=== PATIENT | male | born 1955 | race Caucasian/White ===

== ENCOUNTER → 2017-09-29 | Emergency (ER) | payer BC, OTHER ==
[~2017-09-29] MED LIST: ACETAMINOPHEN INJECTION 100 ML IVPB ONE; SODIUM CHLORIDE 1,000 ML IV STA
[2017-09-29 10:51] VITALS: BMI 39.9
--- NOTE | 2017-09-29 11:30 | PDOC ---
History of Present Illness - General Chief Complaint: Lightheaded Stated Complaint: DIZZINESS (PCP SENT) Time Seen by Provider: 09/29/17 10:58 - History of Present Illness Initial Comments: 09/29/17 11:30 "The patient is a 62 year old male, with a significant past medical history of hypertension and hyperlipidemia, who presents to the emergency department sent by PCP Dr. Azar for abnormal brain MRI earlier today. The patient reports presenting to his PCP for evaluation of 3 weeks of a headache and intermittent dizziness. His PCP ordered an outpatient brain MRI today which was notable for SDH. Pt denies any h/o trauma or falls. Patient denies any associated changes in vision or speech, nausea, vomiting, bladder or bowel incontinence, weakness, changes in gait, or lightheadedness. Patient reports he has been taking Aspirin daily for the headache. Last dose was yesterday. He denies any chest pain, shortness of breath, diaphoresis, or palpitations. He denies any recent travel or sick contacts. Allergies: NKDA Past Surgical History: None reported. Social History: Non smoker. No ETOH or recreational drug use PCP: Dr. Azar " Past History - Past Medical History Allergies/Adverse Reactions: Allergies Allergy/AdvReac Type Severity Reaction Status Date / Time Penicillins Allergy Intermediate Verified 09/29/17 10:48 Home Medications: Ambulatory Orders Lisinopril/Hydrochlorothiazide [Lisinopril-Hctz 20-25 mg Tab] 1 each PO DAILY Anemia: No Asthma: No Cancer: No Cardiac Disorders: No CVA: No COPD: No CHF: No Dementia: No Diabetes: No GI Disorders: No Disorders: No HTN: Yes Hypercholesterolemia: No Liver Disease: No Seizures: No Thyroid Disease: No - Immunization History Immunization Up to Date: Yes - Suicide/Smoking/Psychosocial Hx Smoking History: Never smoked Have you smoked in the past 12 months: No Information on smoking cessation initiated: No Hx Alcohol Use: No Drug/Substance Use Hx: No Substance Use Type: None Review of Systems - Review of Systems Comments:: 09/29/17 11:36 "GENERAL/CONSTITUTIONAL: No fever or chills. No weakness. HEAD, EYES, EARS, NOSE AND THROAT: No change in vision. No ear pain or discharge. No sore throat. CARDIOVASCULAR: No chest pain or shortness of breath. RESPIRATORY: No cough, wheezing, or hemoptysis. GASTROINTESTINAL: No nausea, vomiting, diarrhea or constipation. GENITOURINARY: No dysuria, frequency, or change in urination. MUSCULOSKELETAL: No joint or muscle swelling or pain. No neck or back pain. SKIN: No rash NEUROLOGIC: +Headache, dizziness. No loss of consciousness, or change in strength/sensation. ENDOCRINE: No increased thirst. No abnormal weight change. HEMATOLOGIC/LYMPHATIC: No anemia, easy bleeding, or history of blood clots. ALLERGIC/IMMUNOLOGIC: No hives or skin allergy. " *Physical Exam - Vital Signs Last Vital Signs Temp Pulse Resp BP Pulse Ox 98.2 F 111 H 18 139/77 96 09/29/17 10:48 09/29/17 10:48 09/29/17 10:48 09/29/17 10:48 09/29/17 10:48 - Physical Exam Comments: 09/29/17 11:36 "GENERAL: Awake, alert, and fully oriented, in no acute distress. HEAD: No signs of trauma EYES: PERRLA, EOMI, sclera anicteric, conjunctiva clear ENT: Auricles normal inspection, hearing grossly normal, nares patent, oropharynx clear without exudates. Moist mucosa NECK: Nontender, no stepoffs, Normal ROM, supple, no lymphadenopathy, JVD, or masses LUNGS: Breath sounds equal, clear to auscultation bilaterally. No wheezes, and no crackles HEART: Regular rate and rhythm, normal S1 and S2, no murmurs, rubs or gallops ABDOMEN: Soft, nontender, normoactive bowel sounds. No guarding, no rebound. No masses EXTREMITIES: Normal range of motion, no edema. No clubbing or cyanosis. No cords, erythema, or tenderness NEUROLOGICAL: Cranial nerves II through XII intact. 5/5 strength and sensation in all extremities, Normal speech, normal gait, normal cerebellar function SKIN: Warm, Dry, normal turgor, no rashes or lesions noted. " ED Treatment Course - LABORATORY CBC & Chemistry Diagram: 09/29/17 11:15 09/29/17 11:15 - RADIOLOGY Radiology Studies Ordered: Category Date Time Status HEAD CT WITHOUT CONTRAST [CT] Stat CT Scan 09/29/17 11:19 Ordered Medical Decision Making - Critical Care Time Total Critical Care Time (minutes): 60 Critical Care Statement: The care of this patient involved high complexity decision making to prevent further life threatening deterioration of the patient 's condition and/or to evaluate & treat vital organ system(s) failure or risk of failure. - Medical Decision Making 09/29/17 11:23 62 M with headache x 3 weeks, found to have SDH on outpt MRI. Pt awake and alert , with no neuro deficits. - Labs, coags - CT head - Nsgy consult Dr. Palacios 09/29/17 12:51 CT head confirms SDH Dr. Palacios unavailable. Dr. Cleveland consulted, awaiting callback 09/29/17 13:[address] Cleveland, who recommends transfer. [facility] called for "code neuro" 09/29/17 14:02 Pt accepted for txfer by Dr. Retana *DC/Admit/Observation/Transfer Diagnosis at time of Disposition: SDH (subdural hematoma) - Discharge Dispostion Disposition: TRANSFER ACUTE CARE/OTHER HOSP - Referrals - Patient Instructions - Post Discharge Activity - Transfer to Acute Care Facility Receiving Facility: [facility] Attestations Physician Attestion: 09/29/17 14:43 I, Dr. Orlin Weir MD, attest that this document has been prepared under my direction and personally reviewed by me in its entirety. I further attest, that it accurately reflects all work, treatment, procedures and medical decision -making performed by me.
[2017-09-29 11:36] LABS: BASO % 0.5 % (0-2.0); EOS % 1.5 % (0-4.5); HEMATOCRIT 41.6 % (35.4-49); HEMOGLOBIN 13.8 GM/dL (11.7-16.9); LYMPH % 10.2 % (8-40); MCH 31.4 pg (25.7-33.7); MCHC 33.2 g/dl (32.0-35.9); MEAN CELL VOLUME 94.8 fl (80-96); MEAN PLT VOLUME 8.8 fl (7.5-11.1); MONO % 6.9 % (3.8-10.2); NEUT % 80.9 % (42.8-82.8); PLATELET COUNT 282 K/MM3 (134-434); RBC 4.39 M/mm3 (4.00-5.60); RDW 12.9 % (11.9-15.9); WHITE BLOOD COUNT 11.7 K/mm3 (4.0-10.0)
[2017-09-29 11:53] LABS: INR 0.95 (0.82-1.09); PROTHROMBIN TIME (PATIENT) 10.7 SEC (9.7-13.0)
[2017-09-29 11:55] LABS: ACTIVATED PTT 26.1 SECONDS (25.2-36.5)
[2017-09-29 12:02] LABS: CHLORIDE 106 mmol/L (98-107); SODIUM 140 mmol/L (136-145)
[2017-09-29 12:07] LABS: ALBUMIN 3.6 g/dl (3.4-5.0); ANION GAP 6 (8-16); BLOOD UREA NITROGEN 21 mg/dL (7-18); CALCIUM 8.8 mg/dL (8.5-10.1); CO2 28 mmol/L (21-32); GLUCOSE,RANDOM 99 mg/dL (74-106)
[2017-09-29 12:11] LABS: CREATININE 1.2 mg/dL (0.7-1.3); SGOT/AST 15 U/L (15-37); SGPT/ALT 26 U/L (12-78)
[2017-09-29 12:13] LABS: ALK PHOS 71 U/L (45-117); BILIRUBIN,TOTAL 0.4 mg/dL (0.2-1.0); TOT PROT 7.5 g/dl (6.4-8.2)
[2017-09-29] MEDS: ACETAMINOPHEN 1000 MG/100 ML VIAL (NON FORMULARY) IVPB ONE ×2 (13:04→13:05)
[2017-09-29 14:20] VITALS: BP 136/77; PULSE 108; TEMP 99
--- NOTE | 2017-09-30 16:19 | EKG ---
Test Reason : Blood Pressure : / mmHG Vent. Rate : 104 BPM Atrial Rate : 104 BPM P-R Int : 140 ms QRS Dur : 090 ms QT Int : 338 ms P-R-T Axes : 044 -11 026 degrees QTc Int : 444 ms POOR DATA QUALITY, INTERPRETATION MAY BE ADVERSELY AFFECTED SINUS TACHYCARDIA WITH OCCASIONAL PREMATURE VENTRICULAR COMPLEXES OTHERWISE NORMAL ECG NO PREVIOUS ECGS AVAILABLE Confirmed by AKUA LOWERY MD ([id number]) on 09/30/2017 4:19:25 PM Referred By: Confirmed By:AKUA LOWERY MD
== END | disposition short-term general hospital (02) ==
LOC: JER 10:43
DX: I62.00 Nontraumatic subdural hemorrhage, unspecified (principal); I10 Essential (primary) hypertension; E78.5 Hyperlipidemia, unspecified; Z88.0 Allergy status to penicillin
CPT/HCPCS: 36415; 70450-TC; 80053; 85025; 85610; 85730; 86850; 86900; 86901; 93005; 93010; 99283-25; J0131

== ENCOUNTER 2023-01-17 17:14 | Inpatient (IN) | payer OTHER ==
[2023-01-17 19:02] LABS: BASO % 0.2 % (0-2.0); EOS % 1.7 % (0-4.5); HEMATOCRIT 39.6 % (35.4-49); HEMOGLOBIN 13.2 GM/dL (11.7-16.9); LYMPH % 9.3 % (8-40); MCH 30.9 pg (25.7-33.7); MCHC 33.4 g/dl (32.0-35.9); MEAN CELL VOLUME 92.6 fl (80-96); MEAN PLT VOLUME 8.8 fl (7.5-11.1); MONO % 8.4 % (3.8-10.2); NEUT % 80.4 % (42.8-82.8); PLATELET COUNT 250 10^3/uL (134-434); RBC 4.27 M/mm3 (4.00-5.60); RDW 13.1 % (11.9-15.9)
[2023-01-17 19:22] LABS: INR 1.06 (0.83-1.09); PROTHROMBIN TIME (PATIENT) 12.3 SEC (9.7-13.0)
[2023-01-17 19:26] LABS: CHLORIDE 103 mmol/L (98-107); POTASSIUM 3.9 mmol/L (3.5-5.1); SODIUM 139 mmol/L (136-145)
[2023-01-17 19:28] LABS: ALBUMIN 3.2 g/dl (3.4-5.0); ANION GAP 8 MMOL/L (8-16); BLOOD UREA NITROGEN 12.7 mg/dL (7-18); CALCIUM 8.4 mg/dL (8.5-10.1); CO2 29 mmol/L (21-32); GLUCOSE,RANDOM 114 mg/dL (74-106)
[2023-01-17 19:31] LABS: CREATININE 0.9 mg/dL (0.55-1.3); SGOT/AST 14 U/L (15-37); SGPT/ALT 19 U/L (13-61)
[2023-01-17 19:33] LABS: BILIRUBIN,TOTAL 0.9 mg/dL (0.2-1); TOT PROT 7.2 g/dl (6.4-8.2)
[2023-01-17 19:34] LABS: ALK PHOS 82 U/L (45-117)
[2023-01-17 20:30] LABS: LDH 191 U/L (87-246)
[2023-01-17] MEDS ORDERED: VANCOMYCIN 1,000 MG in DEXTROSE 5%-WATER - 250 ML IVPB ONE (20:44)
[2023-01-17] MEDS ORDERED: CEFEPIME HCL 1 GM VIAL (RESTRICTED TO ID) IVPB ONE (20:44)
[2023-01-17 20:56] VITALS: RESP 18
[2023-01-17] MEDS ORDERED: CEFEPIME 1 GM/100 ML BAG IVPB ONE (20:59)
[2023-01-17] MEDS ORDERED: VANCOMYCIN 1 GRAM (PRE-DOCKED) 1,000 MG/250 ML BAG IVPB ONE (22:06)
[2023-01-17] MEDS ORDERED: DOCUSATE SODIUM 100 MG CAPSULE (FP) PO PRN (23:11)
[2023-01-17] MEDS ORDERED: ACETAMINOPHEN 1000 MG/100 ML BAG IVPB PRN (23:14)
[2023-01-18 02:01] VITALS: BMI 45.2
[2023-01-18] MEDS ORDERED: CEFEPIME HCL 2 GM VIAL (RESTRICTED TO ID) ONE (09:12)
[2023-01-18] MEDS: NYSTATIN POWDER 100,000 UNITS/GM - 15 GM TOPICAL POWDER TP SCH ×2 (09:23→21:11)
[2023-01-18] MEDS: LISINOPRIL 20 MG TABLET PO SCH (09:23)
[2023-01-18 09:35] LABS: BASO % 0.3 % (0-2.0); HEMATOCRIT 35.1 % (35.4-49); HEMOGLOBIN 12.2 GM/dL (11.7-16.9); MCH 32.1 pg (25.7-33.7); MCHC 34.8 g/dl (32.0-35.9); MEAN CELL VOLUME 92.5 fl (80-96); MEAN PLT VOLUME 8.6 fl (7.5-11.1); MONO % 7.6 % (3.8-10.2); NEUT % 83.1 % (42.8-82.8); PLATELET COUNT 243 10^3/uL (134-434); RDW 12.9 % (11.9-15.9); WHITE BLOOD COUNT 12.3 K/mm3 (4.0-10.0)
[2023-01-18 09:59] LABS: POTASSIUM 3.8 mmol/L (3.5-5.1)
[2023-01-18] MEDS ORDERED: VANCOMYCIN 2,000 MG in DEXTROSE 5%-WATER - 500 ML IVPB SCH (10:00)
[2023-01-18] MEDS ORDERED: CEFEPIME 2 GM in DEXTROSE 5%-WATER 100 ML IVPB SCH ×2 (10:00→22:00)
[2023-01-18 10:01] LABS: CALCIUM 8.1 mg/dL (8.5-10.1)
[2023-01-18 10:02] LABS: BLOOD UREA NITROGEN 12.2 mg/dL (7-18); MAGNESIUM 1.9 mg/dL (1.8-2.4)
[2023-01-18 10:05] LABS: CREATININE 0.9 mg/dL (0.55-1.3); PHOSPHOROUS 2.8 mg/dL (2.5-4.9)
[2023-01-18] MEDS: VANCOMYCIN/WATER 2 GRAMS 2,000 MG/400 ML PIGGYBACK IVPB SCH ×2 (10:11→14:23)
[2023-01-18] MEDS ORDERED: LIDOCAINE HCL 2% (20ML MULTI-DOSE VIAL) ONE (15:25)
[2023-01-18] MEDS: CEFEPIME 2 GM in DEXTROSE 5%-WATER 100 ML IVPB SCH (17:13)
[2023-01-18 18:48] LABS: EPI CELLS 10 /uL (0-25.1); HYALINE CASTS 2 /uL (0-3.1); PH,URINE 5.5 (5.0-8.0); URINE APPEARANCE CLEAR; URINE BACTERIA 59 /uL (0-1359); URINE BILIRUBIN NEGATIVE (NEGATIVE); URINE COLOR YELLOW; URINE GLUCOSE (UA) NEGATIVE (NEGATIVE); URINE KETONE TRACE (NEGATIVE); URINE LEUK ESTERASE TRACE (NEGATIVE); URINE NITRITE NEGATIVE (NEGATIVE); URINE PROTEIN 1+ (NEGATIVE); URINE RBC 40 /uL (0-23.9); URINE WBC 65 /uL (0-25.8)
[2023-01-18] MEDS: LINEZOLID 600 MG PREMIX BAG 600 MG/300 ML BAG IVPB SCH (21:10)
[2023-01-18] MEDS: ATORVASTATIN CA 10 MG TABLET (FP) PO SCH (21:11)
[2023-01-18] MEDS ORDERED: ACETAMINOPHEN 325 MG TABLET (FP) PO PRN (23:11)
[2023-01-19] MEDS: CEFEPIME 2 GM in DEXTROSE 5%-WATER 100 ML IVPB SCH ×2 (01:55→10:46)
[2023-01-19] MEDS: LINEZOLID 600 MG PREMIX BAG 600 MG/300 ML BAG IVPB SCH ×2 (08:27→20:17)
[2023-01-19] MEDS: LISINOPRIL 20 MG TABLET PO SCH (10:46)
[2023-01-19] MEDS: NYSTATIN POWDER 100,000 UNITS/GM - 15 GM TOPICAL POWDER TP SCH ×2 (10:50→21:46)
[2023-01-19] MEDS: ATORVASTATIN CA 10 MG TABLET (FP) PO SCH (21:44)
[2023-01-20 10:02] VITALS: BP 134/7; PULSE 91; TEMP 98.9
[2023-01-20] MEDS: LINEZOLID 600 MG PREMIX BAG 600 MG/300 ML BAG IVPB SCH (10:03)
[2023-01-20] MEDS: LISINOPRIL 20 MG TABLET PO SCH (10:03)
[2023-01-20] MEDS: NYSTATIN POWDER 100,000 UNITS/GM - 15 GM TOPICAL POWDER TP SCH (10:03)
== END 2023-01-20 12:11 | disposition home or self-care (01) | DRG 728 ==
LOC: JER 17:14 → JERBED 21:32 → J8W 01-18 01:01
PROVIDERS: ADMIT Internal Medicine; ATTEND Internal Medicine
PROC: 0V95XZZ Drainage of Scrotum, External Approach (ICD-10-PCS; principal; 2023-01-18)
DX: N49.2 Inflammatory disorders of scrotum (principal); Z68.42 Body mass index [BMI] 45.0-49.9, adult; N50.3 Cyst of epididymis; I10 Essential (primary) hypertension; E78.5 Hyperlipidemia, unspecified; Z88.0 Allergy status to penicillin; E66.01 Morbid (severe) obesity due to excess calories; I87.2 Venous insufficiency (chronic) (peripheral)
CPT/HCPCS: 36415; 76870-TC; 80048; 80053; 81003; 82105; 83615; 83735; 84100; 84702; 85025; 85610; 85730; 86850; 86900; 86901; 87040; 87070; 87086; 87186; 87205; 99285-25